=== PATIENT | male | born 1960 | race Caucasian/White ===

== ENCOUNTER 2017-09-21 20:04 | Inpatient (IN) | payer MEDICARE, OTHER ==
[~2017-09-21] VITALS: Ht 175.3 cm; Wt 81.6 kg
--- NOTE | 2017-09-21 20:30 | NUR ---
57 yo male bb ra for ETOH intoxication. patient skin warm and dry, resp even and unlabored. patient ds to er bed, skin warm and dry, resp even an dunlabored. patient placed on monitor technician. awaiting orders from provider, will continue to monitor
--- NOTE | 2017-09-21 21:09 | NUR ---
laboratory miller at bed side for blood draw
[2017-09-21 21:15] LABS: BASOPHILS # (AUTO) 0.1 /CMM (0.0-0.2); BASOPHILS % (AUTO) 1.5 % (0.0-2.0); EOSINOPHILS # (AUTO) 0.1 /CMM (0.0-0.7); EOSINOPHILS % (AUTO) 1.9 % (0.0-6.0); HEMATOCRIT 40 % (39-51); HEMOGLOBIN 13.2 g/dL (13.5-17.5); LYMPHOCYTES # (AUTO) 2.7 /CMM (0.8-4.8); LYMPHOCYTES % (AUTO) 35.7 % (20.0-44.0); MEAN CORPUSCULAR HEMOGLOBIN 28 PG (26.0-33.0); MEAN CORPUSCULAR HGB CONC 33 g/dl (31.0-36.0); MEAN CORPUSCULAR VOLUME 84 fL (80-96); MONOCYTES # (AUTO) 0.4 /CMM (0.1-1.30); MONOCYTES % (AUTO) 5.2 % (2.0-12.0); NEUTROPHILS # (AUTO) 4.1 /CMM (1.8-8.9); NEUTROPHILS % (AUTO) 55.7 % (43.0-81.0); PLATELET COUNT (AUTO) 169 /CMM (150-450); RDW COEFFICIENT OF VARIATION 14.2 (11.5-15.0); RED BLOOD CELL COUNT(AUTO) 4.72 MIL/uL (4.5-6.0); WHITE BLOOD COUNT (AUTO) 7.4 K/uL (4.3-11.0)
[2017-09-21 21:32] LABS: CALCIUM, SERUM 8.9 mg/dL (8.5-10.1); CARBON DIOXIDE 24 mmol/L (21-32); CHLORIDE 102 mmol/L (98-107); GLUCOSE 112 mg/dL (74-106); POTASSIUM 3.4 mmol/L (3.5-5.1); SODIUM SERUM 138 mmol/L (136-145); UREA NITROGEN, BLOOD 8 mg/dL (7-18)
[2017-09-21 21:44] LABS: INR 0.89 (0.85-1.15)
[2017-09-21 21:46] LABS: ALANINE AMINOTRANSFERASE 55 U/L (12-78); ALBUMIN 3.6 g/dL (3.4-5.0); ALCOHOL, BLOOD 180 mg/dL (0-0); ALKALINE PHOSPHATASE 69 U/L (46-116); ASPARTATE AMINOTRANSFERASE 104 U/L (15-37); BILIRUBIN,DIRECT 0.2 mg/dL (0.0-0.2); BILIRUBIN,TOTAL 0.9 mg/dL (0.2-1.0)
[2017-09-21 21:47] LABS: SERUM AMMONIA 14 umol/L (11-32)
[2017-09-21 21:52] LABS: ACETAMINOPHEN 0 ug/ml (10-30); SALICYLATE 1.2 mg/dL (2.8-20.0)
--- NOTE | 2017-09-21 22:07 | NUR ---
Maurice cali in [facility] - 09/21/17 at 2210 by MURTAZA PANEL STEPHANE PER DIA AGOSTO.
[2017-09-21 22:09] LABS: THYROID STIMULATING HORMONE 0.632 uIU/mL (0.358-3.74)
[2017-09-21] MEDS ORDERED: PIPERACILLIN /TAZOBACTAM 3.375 G VIAL IV ONE (22:10)
[2017-09-21] MEDS ORDERED: VANCOMYCIN 1 GM VIAL ONE (22:10)
[2017-09-21 22:14] LABS: TROPONIN I < 0.017 ng/mL (0.00-0.056)
[2017-09-21] MEDS ORDERED: PIPERACILLIN /TAZOBACTAM 3.375 G in IV D5W 50 ML IV ONE (22:30)
[2017-09-21] MEDS ORDERED: IV NS 0.9% 1,000 ML BAG IV ONE (22:30)
[2017-09-21] MEDS ORDERED: VANCOMYCIN 1 GM in IV D5W 250 ML IV ONE (22:30)
--- NOTE | 2017-09-21 22:59 | NUR ---
PATIENT IS RESTING IN ER BED, NO DISTRESS NOTED, SKIN WARM AND DRY. WILL CONTINUE TO MONITOR
[2017-09-21] MEDS: POTASSIUM CL. PREMIX PERIPHER. 50 ML IV SCH (23:30)
--- NOTE | 2017-09-21 23:31 | NUR ---
Melvi FARMER took report
[2017-09-21 23:54] LABS: APPEARANCE,URINE CLEAR (CLEAR); BILIRUBIN,URINE NEGATIVE (NEGATIVE); BLOOD, URINE NEGATIVE Ery/uL (NEGATIVE); COLOR,URINE YELLOW (YELLOW); KETONES,URINE TRACE (NEGATIVE); LEUKOCYTE ESTERASE ,URINE NEGATIVE (NEGATIVE); NITRITE, URINE NEGATIVE (NEGATIVE); PH,URINE 5.5 (5.0-8.0); PROTEIN,URINE NEGATIVE (NEGATIVE); UGLUCOSE NEGATIVE (NEGATIVE); UROBILINOGEN,URINE 0.2 EU/dL (0.2)
[2017-09-21 23:59] LABS: BACTERIA,URINE None seen /HPF (None Seen); RBC,URINE NONE SEEN /HPF (0-2); SQUAMOUS EPITHELIAL CELL,UR Few /HPF (None Seen); WBC,URINE 0-2 /HPF (0-3)
[2017-09-22] MEDS ORDERED: TEMAZEPAM 15 MG CAPSULE PO PRN (00:30)
[2017-09-22] MEDS ORDERED: MAG HYDROX/AL HYDROX/SIMETH 30 ML UDC PO PRN (00:30)
[2017-09-22] MEDS ORDERED: ACETAMINOPHEN 325 MG TABLET PO PRN (00:30)
[2017-09-22] MEDS ORDERED: ALBUTEROL FS 2.5 MG/3 ML VIAL.NEB NEB PRN (00:30)
[2017-09-22] MEDS ORDERED: ONDANSETRON HCL/PF 4 MG/2 ML VIAL IVP PRN (00:30)
--- NOTE | 2017-09-22 00:30 | NUR ---
SURGICAL SCRUB TECHNOLOGIST NOTES PT BROUGHT INTO THE UNIT VIA GURNEY, PT SAFELY TRANSFERRED TO BED, NOTED WITH NO SOB, BREATHING EVEN AND UNLABORED, ALERT TO SELF AT THIS TIME, RESPONDS TO NAME BY GROANING, FOLLOWS COMMANDS. ORIENTED PT TO ROOM, UNIT, CALL LIGHT AND USED OF CALL LIGHT, PT JUST GRUNTED AND WENT BACK TO SLEEP. ALL PATIENT'S NEEDS ATTENDED TO AT THIS TIME, CALL LIGHT PLACED WITHIN EASY REACH, PLACED BED IN LOW POSITION AND LOCKED IN PLACE. WILL CONTINUE TO MONITOR.
--- NOTE | 2017-09-22 00:30 | NUR ---
TRANSPORTED PT TO TELE BED WITHOUT INCIDENT ON LOGGING CONTRACTOR
[2017-09-22 00:45] VITALS: BP 161/85
--- NOTE | 2017-09-22 01:30 | NUR ---
RN NOTE PATIENT SEEN AND EXAMINED BY DR. OLEG. ERICKSON WITH NEW ORDER FOR NICOTINE PATCH 21 MG QD. ALL ORDERS NOTED AND CARRIED OUT.
[2017-09-22] MEDS ORDERED: POTASSIUM CL. PREMIX PERIPHER. 100 ML ONE (01:37)
[2017-09-22] MEDS: POTASSIUM CL. PREMIX PERIPHER. 50 ML IV SCH (01:55)
[2017-09-22 04:00] VITALS: BP 129/61
[2017-09-22] MEDS ORDERED: IV PREMIX 0.45% NS + KCL 1,000 ML IV ONE ×2 (04:32→22:39)
--- NOTE | 2017-09-22 06:53 | NUR ---
RN CLOSING NOTE PATIENT ASLEEP IN BED, EASILY AROUSABLE, ALERT TO SELF, VERBALLY RESPONSIVE, NOTED WITH NO SOB, BREATHING EVEN AND UNLABORED, CONTINUES TO RECEIVE IVF ORDERED VIA IV PERIPHERAL LINE ON RIGHT SHOULDER G22, PATENT AND INFUSING WELL. ALL PATIENT'S NEEDS ATTENDED TO AT THIS TIME. PATIENT UNDER TELE MONITORING SR @ 77 BPM. PLACED BED IN LOW POSITION AND LOCKED IN PLACE. WILL ENDORSE TO AM SHIFT NURSE FOR CONTINUITY OF CARE.
[2017-09-22 06:54] LABS: ALANINE AMINOTRANSFERASE 48 U/L (12-78); ALBUMIN 3.1 g/dL (3.4-5.0); ALKALINE PHOSPHATASE 56 U/L (46-116); ASPARTATE AMINOTRANSFERASE 72 U/L (15-37); CARBON DIOXIDE 22 mmol/L (21-32); CHLORIDE 113 mmol/L (98-107); CREATININE 0.9 mg/dL (0.6-1.3); GLUCOSE 84 mg/dL (74-106); LIPASE 93 U/L (73-393); MAGNESIUM 1.7 mg/dL (1.8-2.4); PHOSPHORUS 3.5 mg/dL (2.5-4.9); POTASSIUM 3.9 mmol/L (3.5-5.1); SODIUM SERUM 148 mmol/L (136-145); UREA NITROGEN, BLOOD 7 mg/dL (7-18)
[2017-09-22 06:56] LABS: BASOPHILS % (AUTO) 0.7 % (0.0-2.0); EOSINOPHILS # (AUTO) 0.2 /CMM (0.0-0.7); EOSINOPHILS % (AUTO) 2.9 % (0.0-6.0); HEMATOCRIT 36 % (39-51); HEMOGLOBIN 12.2 g/dL (13.5-17.5); LYMPHOCYTES # (AUTO) 2.1 /CMM (0.8-4.8); MEAN CORPUSCULAR HEMOGLOBIN 29 PG (26.0-33.0); MEAN CORPUSCULAR HGB CONC 34 g/dl (31.0-36.0); MEAN CORPUSCULAR VOLUME 86 fL (80-96); MONOCYTES # (AUTO) 0.5 /CMM (0.1-1.30); MONOCYTES % (AUTO) 7.4 % (2.0-12.0); NEUTROPHILS # (AUTO) 4.1 /CMM (1.8-8.9); RDW COEFFICIENT OF VARIATION 15.3 (11.5-15.0); RED BLOOD CELL COUNT(AUTO) 4.23 MIL/uL (4.5-6.0)
[2017-09-22 06:58] LABS: CHOLESTEROL 131 mg/dL (<200); HDL CHOLESTEROL 81 mg/dL (40-60); LDL 47 mg/dL (0-99); THYROID STIMULATING HORMONE 0.925 uIU/mL (0.358-3.74); TRIGLYCERIDES 45 mg/dL (30-150)
[2017-09-22 07:07] LABS: TROPONIN I < 0.017 ng/mL (0.00-0.056)
[2017-09-22] MEDS: PANTOPRAZOLE 40 MG TABLET.DR PO SCH (07:30)
[2017-09-22 07:42] LABS: PLATELET COUNT (AUTO) 137 /CMM (150-450)
[2017-09-22 08:00] VITALS: BP 124/61
--- NOTE | 2017-09-22 08:20 | NUR ---
ms rn recieved on bed, awake,alert,oriented x3, no in any form of distress, respirations even and unlabored,no sob noted, lungs are claer,abdomen soft, positive bowel sounds, denies pain at this time, will monitor patient's condition.
[2017-09-22] MEDS: MULTIVITAMINS,THERAGRAN 1 UDTAB TABLET PO SCH (09:00)
[2017-09-22] MEDS: FOLIC ACID 1 MG TABLET PO SCH (09:00)
[2017-09-22] MEDS: THIAMINE HCL 100 MG TABLET PO SCH (09:00)
--- NOTE | 2017-09-22 09:00 | NUR ---
ms henry breakfast held ,npo at this time.
--- NOTE | 2017-09-22 11:00 | NUR ---
ms rn was seen by dr. fadia solis/ orders made and carried out.
--- NOTE | 2017-09-22 11:04 | NUR ---
Social service consult requested by Dr. Pfeiffer for possible homelessness and alcohol abuse. Pt. is a 57 year old male who was admitted to [facility] for sepsis and ETOH. SW attempted to assess pt. however, pt. is alert and oriented to self only at this time. Pt. mumbles when asked a question. SW to re-assess pt. when he is more alert and oriented.
--- NOTE | 2017-09-22 12:00 | NUR ---
ms rn patient ate lunch w/o aspiration.all needs attended.
[2017-09-22] MEDS: NICOTINE PATCH (21MG) 21 MG PATCH.TD24 TD SCH (12:35)
[2017-09-22] MEDS: Magnesium 1GM/D5W 100ML PREMIX 100 ML IV SCH ×2 (12:35→18:53)
[2017-09-22 16:00] VITALS: BP 148/77
--- NOTE | 2017-09-22 18:47 | NUR ---
Per report patient is homeless. Attempted to interview patient but was asleep,per nurse, patient was able to get up for bathroom privileges and went back to sleep again. Will reassess in am once more awake and able to carry conversation. Addendum: 09/22/17 at 2216 by ANIBAL CRAIG RN Amended: Links added.
--- NOTE | 2017-09-22 19:15 | NUR ---
RN OPENING NOTE RECEIVED PT IN BED, ASLEEP BUT EASILY AROUSABLE, VERBALLY RESPONSIVE, NOTED WITH NO FACIAL GRIMACING, NO SOB, BREATHING EVEN AND UNLABORED, IN NO ACUTE DISTRESS AT THIS TIME. RECEIVING MAGNESIUM IV, INFUSING WELL. ALL PATIENT'S NEEDS ATTENDED TO AT THIS TIME. CALL LIGHT PLACED WITHIN EASY REACH. PLACED BED IN LOW POSITION AND LOCKED IN PLACE. WILL CONTINUE TO MONITOR.
[2017-09-22 20:00] VITALS: BP 142/78
[2017-09-22] MEDS: HYDROCODONE/APAP 5/325MG 1 EACH TABLET PO PRN (23:22)
--- NOTE | 2017-09-23 06:32 | NUR ---
RN CLOSING NOTE PATIENT IN BED, ASLEEP, AROUSABLE TO VOICE AND LIGHT TOUCH, VERBALLY RESPONSIVE, ALERT TO SELF, NO FACIAL GRIMACING NOTED, NO SOB, BREATHING EVEN AND UNLABORED, IN NO ACUTE DISTRESS AT THIS TIME. ALL PATIENT'S NEEDS ATTENDED TO. PLACED CALL LIGHT WITHIN EASY REACH. BED PLACED IN LOW POSITION AND LOCKED IN PLACE. WILL ENDORSE TO AM SHIFT NURSE FOR CONTINUITY OF CARE.
[2017-09-23 06:38] LABS: BASOPHILS # (AUTO) 0.1 /CMM (0.0-0.2); BASOPHILS % (AUTO) 0.8 % (0.0-2.0); EOSINOPHILS # (AUTO) 0.2 /CMM (0.0-0.7); EOSINOPHILS % (AUTO) 3.9 % (0.0-6.0); HEMATOCRIT 37 % (39-51); HEMOGLOBIN 12.4 g/dL (13.5-17.5); LYMPHOCYTES % (AUTO) 32.1 % (20.0-44.0); MEAN CORPUSCULAR HEMOGLOBIN 29 PG (26.0-33.0); MEAN CORPUSCULAR HGB CONC 33 g/dl (31.0-36.0); MEAN CORPUSCULAR VOLUME 87 fL (80-96); MONOCYTES # (AUTO) 0.5 /CMM (0.1-1.30); MONOCYTES % (AUTO) 7.9 % (2.0-12.0); NEUTROPHILS # (AUTO) 3.5 /CMM (1.8-8.9); NEUTROPHILS % (AUTO) 55.3 % (43.0-81.0); PLATELET COUNT (AUTO) 151 /CMM (150-450); RDW COEFFICIENT OF VARIATION 15.6 (11.5-15.0); WHITE BLOOD COUNT (AUTO) 6.3 K/uL (4.3-11.0)
[2017-09-23 07:10] LABS: CALCIUM, SERUM 8.4 mg/dL (8.5-10.1); MAGNESIUM 2.1 mg/dL (1.8-2.4); PHOSPHORUS 3.3 mg/dL (2.5-4.9); POTASSIUM 3.9 mmol/L (3.5-5.1)
[2017-09-23 08:00] VITALS: BP 139/87
--- NOTE | 2017-09-23 08:20 | NUR ---
MS RN RECEIVED ON BED, SLEEPING,NOT IN ANY FORM OF DISTRESS, RESPIRATIONS EVEN AND UNLABORED,NO SOB NOTED, LUNGS ARE CLEAR,ABDOMEN SOFT,POSITIVE BOWEL SOUNDS, DENIES PAIN AT THIS TIME, WILL MONITOR PATIENT'S CONDITION.
--- NOTE | 2017-09-23 09:00 | NUR ---
MS RN STILL SLEEPING, WILL GIVE MEDS LATER.
--- NOTE | 2017-09-23 10:00 | NUR ---
MS RN PATIENT AWAKE, DUE MEDS GIVEN,TOLERATED WELL.
[2017-09-23] MEDS: PANTOPRAZOLE 40 MG TABLET.DR PO SCH (11:34)
[2017-09-23] MEDS: MULTIVITAMINS,THERAGRAN 1 UDTAB TABLET PO SCH (11:34)
[2017-09-23] MEDS: FOLIC ACID 1 MG TABLET PO SCH (11:34)
[2017-09-23] MEDS: NICOTINE PATCH (21MG) 21 MG PATCH.TD24 TD SCH (11:34)
[2017-09-23] MEDS: THIAMINE HCL 100 MG TABLET PO SCH (11:34)
[2017-09-23] MEDS: LORAZEPAM INJ 2 MG/ML VIAL IV PRN (11:42)
[2017-09-23] MEDS: CHLORDIAZEPOXIDE HCL 25 MG CAPSULE PO SCH ×2 (14:28→16:37)
[2017-09-23 16:00] VITALS: BP 130/77
--- NOTE | 2017-09-23 18:36 | NUR ---
ms rn on bed, no changes in condition, all needs attended.
[2017-09-23 20:00] VITALS: BP 116/65
--- NOTE | 2017-09-23 20:00 | NUR ---
MS YARI INITIAL NOTES GOT REPORT FROM AM NURSE JESSICA AND CHECKED THE PT . SEEN RESTING COMFORTABLY WITH EYES CLOSED BUT AROUSES TO TOUCH. IVF STILL INFUSING ON HIS LEFT SHOULDER AND PATENT AND INTACT. NO REDNESS NOTED. SKIN WARM AND DRY TO TOUCH. NO SOB NOTED. NO SIGNS OF ANY ACUTE DISTRESS NOTED. ON SEMI FOWLERS POSITION WITH SIDE RAILS X2 UP NAD BED IN,LOW AND LOCK IN POSITION. PLACE CALL LIGHT AT REACH. WILL CONTINUE MONITORING.
[2017-09-23] MEDS: HYDROCODONE/APAP 5/325MG 1 EACH TABLET PO PRN (23:04)
--- NOTE | 2017-09-23 23:05 | NUR ---
MS YARI NOTES PAIN MGT. PT WOKE UP AND COMPLAINING OF LOWER BACK PAIN. NORCO TABLET GIVEN , SNACKS ALSO SERVED. EDUCATE PT FOR POSSIBLE SIDE EFFECT. PT UNDERSTOOD WELL. KEPT HIM WARM AND COMFORTABLE AT ALL TIMES. PLACE CALL LIGHT AT REACH.
--- NOTE | 2017-09-24 02:01 | NUR ---
IGNITION EXPERT/NOTES PT SLEEPING COMFORTABLY IN BED WITHOUT ANY DISCOMFORT NOTED. WILL CONTINUE TO MONITOR.
--- NOTE | 2017-09-24 07:00 | NUR ---
MS MELTING FURNACE SKIMMER CLOSING NOTES PT BACK TO SLEEP AFTER NEW IV LINE INSERTED GAUGE 22 ON HIS RIGHT WRIST. IVF 1/2 NS WITH 20MEQ KCL AT 75 ML/HR. ALL DUE MEDS GIVEN AND ALL NEEDS MET. STABLE MELA THE NIGHT AND SLEPT WELL . KEPT HIM WARM AND COMFORTABLE AT ALL TIMES. SAFETY PRECAUTION IMPLEMENTED AND OBSERVED. PLACE CALL LIGHT AT REACH.
--- NOTE | 2017-09-24 07:54 | NUR ---
MS/RN OPENING NOTE PATIENT IN BED IN STABLE CONDITION. A/O X 2. NO SIGNS OF ACUTE DISTRESS. NO COMPLAIN OF PAIN OR DISCOMFORT. ALL NEEDS ATTENDED TO. CALL LIGHT WITHIN REACH. WILL CONTINUE TO MONITOR TO ENSURE SAFETY.
[2017-09-24 08:00] VITALS: BP_SYST 126; BP_DIAS 68; BP_DIAS 69
--- NOTE | 2017-09-24 08:20 | NUR ---
ms rn receive don bed, awake,alert,oriented x2,not in any form of distress, respirations even and unlabored,no sob noted, lungs are clear,abdomen soft,positive bowel sounds, denies pain at this time, will monitor patient.
--- NOTE | 2017-09-24 08:23 | NUR ---
MS/RN REPORT REPORT GIVEN TO JESSICA RN FOR ANY EMEKA.
--- NOTE | 2017-09-24 09:00 | NUR ---
ms henry breakfast served,due meds given,tolerated well.
[2017-09-24] MEDS: FOLIC ACID 1 MG TABLET PO SCH (09:12)
[2017-09-24] MEDS: NICOTINE PATCH (21MG) 21 MG PATCH.TD24 TD SCH (09:12)
[2017-09-24] MEDS: PANTOPRAZOLE 40 MG TABLET.DR PO SCH (09:12)
[2017-09-24] MEDS: MULTIVITAMINS,THERAGRAN 1 UDTAB TABLET PO SCH (09:12)
[2017-09-24] MEDS: THIAMINE HCL 100 MG TABLET PO SCH (09:13)
[2017-09-24] MEDS: CHLORDIAZEPOXIDE HCL 25 MG CAPSULE PO SCH (09:13)
[2017-09-24] MEDS: LORAZEPAM INJ 2 MG/ML VIAL IV PRN (09:31)
--- NOTE | 2017-09-24 11:04 | NUR ---
MEGHNA met with pt. bedside for a social service assessment. Pt. is a 57 year old male who was admitted to [facility] for sepsis. Pt. is much more alert and oriented than he was a few days ago. Pt. had half his face covered with a sheet. Pt. states he is homeless and has been homeless for the past five months. Pt. was residing at an independent living prior to becoming homeless. MEGHNA offered pt. Winter skilled nursing placement that pt. accepted. MEGHNA gave pt. the following resources: [facility] list of shelters, homeless resources and food resources. Pt. denies drug use, however drinks beers daily. Pt. declined resources for alcohol programs. Pt. denies history of psychiatric illnesses. Pt. states he has anxiety but doesn't take any medication for it. Pt. receives approximately $850/ month in SSDI. Pt. will require bus token to get to shuttle [facility] pickup for winter skilled nursing placement. MEGHNA updated YUAN Lee regarding pt's discharge plan. Homeless Patient Waiver form to be signed by pt. upon discharge.
--- NOTE | 2017-09-24 11:30 | NUR ---
ms rn was seen by dr. loaiza w/ order to be discharge today.
--- NOTE | 2017-09-24 15:04 | NUR ---
SW was informed by case briefer Liberty that pt. will be going to a custodial facility due to having skilled needs. Pt. no longer requires homeless fci placement.
[2017-09-24] MEDS ORDERED: ACET325T53 PO (15:24)
[2017-09-24] MEDS ORDERED: THIA100T13 PO (15:24)
[2017-09-24] MEDS ORDERED: MAG30ORA PO (15:24)
[2017-09-24] MEDS ORDERED: NICO-677 TD (15:24)
[2017-09-24] MEDS ORDERED: TEMA15CA5 PO (15:24)
[2017-09-24] MEDS ORDERED: MULT-24 PO (15:24)
[2017-09-24] MEDS ORDERED: ALBUT2 NEB (15:24)
[2017-09-24] MEDS ORDERED: FOLI1TAB16 PO (15:24)
[2017-09-24] MEDS ORDERED: PANT40TA2 PO (15:24)
--- NOTE | 2017-09-24 15:54 | NUR ---
ms rn patient will be discharge to [facility] today.
--- NOTE | 2017-09-24 16:13 | NUR ---
ms rn patient went to [facility], report given to ji henry, no distress noted.
== END 2017-09-24 16:30 | DRG 896 ==
LOC: ER 20:05 → TELE 23:17 → MED 09-22 09:20
PROVIDERS: ADMIT Internal Medicine; ATTEND Internal Medicine
DX: F10.239 Alcohol dependence with withdrawal, unspecified (principal); G93.41 Metabolic encephalopathy; F10.229 Alcohol dependence with intoxication, unspecified; E87.2 Acidosis; S00.03XA Contusion of scalp, initial encounter; Y92.511 Restaurant or cafe as the place of occurrence of the external cause; E86.0 Dehydration; J44.9 Chronic obstructive pulmonary disease, unspecified; F17.210 Nicotine dependence, cigarettes, uncomplicated; G89.29 Other chronic pain; Z59.0 Homelessness; Y93.9 Activity, unspecified; T51.0X1A Toxic effect of ethanol, accidental (unintentional), initial encounter; Y90.6 Blood alcohol level of 120-199 mg/100 ml; F19.10 Other psychoactive substance abuse, uncomplicated; Z91.81 History of falling; X58.XXXA Exposure to other specified factors, initial encounter
CPT/HCPCS: 36415; 70450-TC; 71045-TC; 72125-TC; 80048-TC; 80053-TC; 80061-TC; 80076-TC; 80305; 81000-TC; 82140-TC; 83605-TC; 83690-TC; 83735-TC; 84100-TC; 84443-TC; 84484-TC; 85025-TC; 85730-TC; 87040-TC; 87081-TC; 87086-TC; 93307-TC; A4606; G0480; J2060; J2405; J2543; J3370; J3475; J3480; J3490; J7040; J7060; Z7610